=== PATIENT | female | born 1990 | race Hispanic/Latino ===

== ENCOUNTER → 2017-11-12 | Outpatient (CLI) | payer OTHER | LOC: M LRY 12:30 | DX: N88.8 Other specified noninflammatory disorders of cervix uteri (principal) | CPT/HCPCS: 87086 ==

== ENCOUNTER → 2017-11-12 | Outpatient (REF) | payer OTHER ==
[2017-11-12 18:06] LABS: CHLAMYDIA DNA AMPLIFICATION NEGATIVE (NEGATIVE); GC DNA AMPLIFICATION NEGATIVE (NEGATIVE)
== END ==
LOC: M SFHCLERA 12:07
DX: R30.0 Dysuria (principal); N93.9 Abnormal uterine and vaginal bleeding, unspecified; R10.2 Pelvic and perineal pain

== ENCOUNTER → 2018-11-13 | Outpatient (CLI) | payer OTHER ==
--- NOTE | 2018-11-13 17:25 | REP ---
Right foot: For views. History: Injury of the right foot. Findings: Four views of the right foot show overall normal mineralization. No fracture is seen. Bones, joints and soft tissues are unremarkable. Impression: No fracture noted. Electronically Signed by Delon Brooks MD 11/13/2018 05:16 P
== END ==
LOC: M LRY 16:41
PROVIDERS: ATTEND Nurse Practitioner Family
DX: S99.921A Unspecified injury of right foot, initial encounter (principal); X50.1XXA Overexertion from prolonged static or awkward postures, initial encounter; Y92.9 Unspecified place or not applicable
CPT/HCPCS: 73630; G0463

== ENCOUNTER → 2019-02-20 | Outpatient (REF) | payer OTHER | LOC: M SFHCLERA 13:15 | PROVIDERS: ATTEND Nurse Practitioner Family | DX: J02.9 Acute pharyngitis, unspecified (principal) ==

== ENCOUNTER → 2019-07-04 | Outpatient (CLI) | payer OTHER ==
--- NOTE | 2019-07-04 20:03 | REP ---
Clinical: Cough . Comparison: None . Technique: PA and lateral. Findings: The mediastinum and cardiac silhouette are normal. The lung mar are clear and without acute consolidation, effusion, or pneumothorax. The skeletal structures are intact and normal. Impression: 1. No acute cardiopulmonary process. Electronically Signed by Alin Haynes MD 07/04/2019 07:55 P
== END ==
LOC: M LRY 19:37
PROVIDERS: ATTEND Nurse Practitioner Family
DX: R05 Cough (principal)

== ENCOUNTER 2021-04-13 01:50 | Outpatient (CLI) | payer OTHER ==
[~2021-04-13] VITALS: Ht 149.9 cm; Wt 68.9 kg
[2021-04-13 02:10] VITALS: BP 140/94
[2021-04-13] MEDS ORDERED: PRENTAB9 PO (02:34)
[2021-04-13 02:48] VITALS: BP 134/82
--- NOTE | 2021-04-13 04:54 | IPNPDOC ---
Text Note Date of Service Item Value Date Time Urine Color YELLOW 04/13/21225 Urine Appearance HAZY 04/13/21225 Urine pH 5.0 UNITS 04/13/21225 Urine Protein 1+ mg/dL H 04/13/21225 Urine Glucose (UA) NEGATIVE mg/dL 04/13/21225 Urine Ketones NEGATIVE mg/dL 04/13/21225 Urine Blood NEGATIVE 04/13/21225 Urine Nitrite NEGATIVE 04/13/21225 Urine Urobilinogen 0.2 mg/dL 04/13/21225 Urine Leukocyte Esterase NEGATIVE 04/13/21225 Urine WBC (Auto) 0 /HPF 04/13/21225 Urine RBC (Auto) 1 /HPF 04/13/21225 Urine Hyaline Casts (Auto) 0 /LPF 04/13/21225 Urine Bacteria (Auto) NEGATIVE 04/13/21225 Urine Squamous Epithelial Cells 4 /HPF 04/13/21225 Urine Mucus (Auto) SMALL 04/13/21225 The patient was seen on 04/13/21. NOTE Vital Signs Label Value Date Time Pulse 85 04/13/218 Respiratory Rate 18 bpm 04/13/21247 Blood Pressure Assessment 134/82 (99) 04/13/21247 Source Automatic Cuff (NIBP) Blood Pressure Assessment 140/94 (109) 04/13/21209 Source Automatic Cuff (NIBP) Respiratory Rate 18 bpm 04/13/21209 Pulse 97 04/13/21209 Patient Temperature 98.5 degrees F 04/13/21209 Temperature Source Temporal 04/13/21209 Bedside Pulse Oximetry 99 % 04/13/21 0210 04/13/21 30 yo LMP 07/09/20 EDC BY EARLY US 04/15/21 HX CONTRACTIONS 7 MINUTES APART NO VAGINAL BLEEDING NO VAGINAL DISCHARGE RISK FACTORS PCOS ENDOMETRIOSIS ANXIETY EXAMINATION APPEARS DISTRESSED SF HEIGHT 40 CM PALPABLE CONTRACTIONS MILD PELVIC EXAMINATION FT POSTERIOR NOT IN PELVIS VERTEX CATEGORY 1 STRIP RECHECK 1 HOUR LATER NO CHANGE CATEGORY 1 STRIP' PRECAUTIONS GIVEN KEEP APPOINTMENT FT DRUM OB RTC IF CHANGE IN PATTERN OR SROM OR BLEEDING EXPRESSED UNDERSTANDING DISCHARGED UNDELIVERED VS,Fishbone, I+O VS, Fishbone, I+O Vital Signs Date Time Temp Pulse Resp B/P (MAP) Pulse Ox O2 Delivery O2 Flow Rate FiO2 04/13/21 02:48 85 18 134/82 (99) 04/13/21 02:10 98.5 99 Room Air Chidi Gordon MD Apr 13, 2021 04:53
== END 2021-04-13 04:23 | disposition home or self-care (01) ==
LOC: M LDO 01:50
PROVIDERS: ATTEND Obstetrics & Gynecology
DX: O60.03 Preterm labor without delivery, third trimester (principal); Z3A.00 Weeks of gestation of pregnancy not specified
CPT/HCPCS: 59025; 81001; G0378; G0463

== ENCOUNTER 2021-04-15 12:53 | Inpatient (IN) | payer OTHER ==
[~2021-04-15] VITALS: Ht 149.9 cm; Wt 68.7 kg
[2021-04-15] VITALS (28 sets, daily range): BP systolic 121–170; BP diastolic 63–92
[2021-04-15] MEDS: LR 1,000 ML IV SCH (02:00)
[~2021-04-15 12:53] MED LIST: PRENTAB9 PO
[2021-04-15] MEDS ORDERED: OXYTOCIN DRIP 30 UNITS in IV 1 EA IV PRN ×8 (13:45→20:15)
[2021-04-15] MEDS ORDERED: LACTATED RINGER'S 1000 ML IV ONE (13:45)
[2021-04-15] MEDS ORDERED: LR 1,000 ML IV SCH (13:45)
[2021-04-15] MEDS ORDERED: OXYTOCIN INJ 10 UNITS/ML VIAL (J2590) IV PRN ×2 (13:45→20:15)
[2021-04-15] MEDS ORDERED: METHYLERGONOVINE MALEATE 0.2 MG/ML VIAL (J2210) IM PRN ×2 (13:45→20:15)
[2021-04-15 14:55] LABS: HEMATOCRIT 35.1 % (36.0-47.0); HEMOGLOBIN 11.7 g/dl (12.0-15.5); MEAN CORPUSCULAR HEMOGLOBIN 30.7 pg (27.0-33.0); MEAN CORPUSCULAR HGB CONC 33.3 g/dl (32.0-36.5); MEAN CORPUSCULAR VOLUME 92.1 fl (80.0-96.0); PLATELET COUNT, AUTOMATED 207 10^3/uL (150-450); RED BLOOD COUNT 3.81 10^6/uL (4.00-5.40); WHITE BLOOD COUNT 14.2 10^3/uL (4.0-10.0)
[2021-04-15] MEDS ORDERED: FENTANYL 2MCG/ML ROPIVACAINE 0.2% IN 0.9% NACL 100ML IVBAG As Ordered ONE (15:10)
[2021-04-15] MEDS ORDERED: EPIDURAL COMMENT XX SCH (15:30)
[2021-04-15] MEDS ORDERED: REFRIGERATOR IV KEYS XX PRN (15:30)
[2021-04-15] MEDS ORDERED: ONDANSETRON 4MG/2ML VIAL IV PRN ×3 (15:30→22:00)
[2021-04-15] MEDS ORDERED: EPIDURAL/PCA KEYS XX PRN (15:30)
[2021-04-15] MEDS ORDERED: ePHEDrine SULFATE 25 MG/5 ML(5MG/ML) SYRINGE IV PRN (15:30)
[2021-04-15] MEDS ORDERED: NALOXONE INJ 0.4MG/1ML VIAL (J2310 PER 1MG) IV PRN ×3 (15:30→21:13)
[2021-04-15] MEDS ORDERED: FENTANYL/ROPIVACAINE/NACL BAG 100 ML EPIDURAL SCH (15:30)
[2021-04-15] MEDS ORDERED: LACTATED RINGER'S 1000 ML IV PRN (15:30)
[2021-04-15] MEDS ORDERED: diphenhydrAMINE 50MG/ML VIAL (J1200) IV PRN ×2 (15:30→21:13)
--- NOTE | 2021-04-15 16:39 | IPNPDOC ---
Text Note Date of Service Vital Signs Label Value Date Time Pulse 87 04/15/21 1318 Respiratory Rate 18 bpm 04/15/21 1318 Blood Pressure Assessment 141/92 (108) 04/15/21 1318 Source Automatic Cuff (NIBP) The patient was seen on 04/15/21. NOTE Item Value Date Time White Blood Count 14.2 10^3/uL H 04/15/21 1355 Red Blood Count 3.81 10^6/uL L 04/15/21 1355 Hemoglobin 11.7 g/dl L 04/15/21 1355 Hematocrit 35.1 % L 04/15/21 1355 Mean Corpuscular Volume 92.1 fl 04/15/21 1355 Mean Corpuscular Hemoglobin 30.7 pg 04/15/21 1355 Mean Corpuscular Hemoglobin Concent 33.3 g/dl 04/15/21 1355 Red Cell Distribution Width 13.1 % 04/15/21 1355 Platelet Count 207 10^3/uL 04/15/21 1355 assessment re post epidural examination anterior cervical change 3-4 arom clear fluid -3 station catagory 1 strip contractions adequate if needed pitocin will augment . safe to proceed VS,Fishbone, I+O VS, Fishbone, I+O Laboratory Tests 04/15/21 13:55 Vital Signs Date Time Temp Pulse Resp B/P (MAP) Pulse Ox O2 Delivery O2 Flow Rate FiO2 04/15/21 13:18 87 18 141/92 (108) Chidi Gordon MD Apr 15, 2021 16:37
[2021-04-15] MEDS ORDERED: OXYTOCIN DRIP 30 UNITS in IV 1 EA IV SCH (16:40)
--- NOTE | 2021-04-15 16:42 | HPEPDOC ---
Obstetrical History & Physical General Date of Admission Item Value Date Time White Blood Count 14.2 10^3/uL H 04/15/21 1355 Red Blood Count 3.81 10^6/uL L 04/15/21 1355 Hemoglobin 11.7 g/dl L 04/15/21 1355 Hematocrit 35.1 % L 04/15/21 1355 Mean Corpuscular Volume 92.1 fl 04/15/21 1355 Mean Corpuscular Hemoglobin 30.7 pg 04/15/21 1355 Mean Corpuscular Hemoglobin Concent 33.3 g/dl 04/15/21 1355 Red Cell Distribution Width 13.1 % 04/15/21 1355 Platelet Count 207 10^3/uL 04/15/21 1355 Vital Signs Label Value Date Time Pulse 87 04/15/21 1318 Respiratory Rate 18 bpm 04/15/21 1318 Blood Pressure Assessment 141/92 (108) 04/15/21 1318 Source Automatic Cuff (NIBP) Vital Signs Label Value Date Time Pulse 87 04/15/21 1318 Respiratory Rate 18 bpm 04/15/21 1318 Blood Pressure Assessment 141/92 (108) 04/15/21 1318 Source Automatic Cuff (NIBP) Apr 15, 2021 at 13:34 Primary Care Physician: Chidi Gordon MD History of Present Illness EDC 04/15/2021 AT TERM CONTRACTIONS 2 DAYS UNABLE TO SLEEP NOT EATING OR DRINKING PRESENTLY MINIMAL VARIABILITY MODERATE PROLONGED CONTRACTIONS Chief Complaint: Contractions, term Information Provided By: Patient Age: 30 : 1 Term: 0 Pre-term: 0 Abortions: 0 Livin Care Care: Good Care Number of Visits: 9 Dating Final EDC: Apr 15, 2021 Final EDC for Daily Update: Apr 15, 2021 Final EDC by: LMP LMP: Jul 09, 2020 1st Trimester Date: September 07, 2020 Weeks + Days: 8.3 Estimated Date of Confinement: Apr 15, 2021 EGA at Admission: 40 Antepartum Course Diagnos(e)s ACTIVE LABOR AT TERM Height (inches): 59 Pre- weight (lbs.): 127 Admission Weight (lbs.): 152 Change in Weight (lbs.): 25 Past Medical History Past Obstetrical History : Past Obstetrical History: Primgravida DISH PERSON History: Endometriosis (PCOS), Other (PCOS ) Past Medical History Medical History ANXIETY Surgical History: Other (LAPAROSCOPY ENDOMETRIOSIS WISDOM TEETH) Family History Significant Family History: Cancer (CIRRHOSIS HYPERTENSION THYROID, ) Family History MOTHER THYROID, LIVER MGP THYROID,HYPERTENSION Social History Social history AD NO VIOLENCE NO RISKY BEHAVIOR Marital Status: Family situation: Spouse/partner home Psychosocial History: Anxiety * Smoker: non-smoker Alcohol: Denies Drugs: denies Abuse Violence Screening Have you been hit/kicked/slapp: No Have you been sexually assault: No Imunizations Tdap status: current Influenza Status: current Allergies Coded Allergies: shellfish derived (Verified Allergy, Severe, 04/13/21) cefaclor (Verified Allergy, Unknown, 04/13/21) Medications Scheduled No.137/Iron/Folic Acd ( Vitamin Tablet) 1 Each Tablet, 1 TAB PO DAILY Physical Examination Physical Examination GENERAL: Alert and oriented times three. BREAST: . ABDOMEN: Gravid and non-tender to touch. FETUS: Is vertex (VTX) by sterile vaginal examination (SVE), fetus is vertex (VTX) by Dwain.3-4 STRETCHY SOFT MID POSITION BULGING MEMBRANES -3 STATION -3 HEART RATE: Regular rate and rhythm. MINIMAL VARIBILITY LUNGS: Clear to auscultation (CTA). EXTREMITIES: No edema. No clonus. Deep tendon reflexes (DTRs) + . Other physical findings NORMOCEPHALIC ATRAUMATIC NECK FULL RANGE MOTION, CHEST CLEAR TO BASES NO WHEEZE NO RHONCHI, NO SOB HEART REGULAR RHYTHM NO MURMUR NO CLICKS RUBS NO CHEST PAIN NO RASHES LESIONS PLEURITIS NO ARTHRALGIA MYALGIA NO ARTHRITIS ABDOMEN SOFT MODERATE PAIN WITH CONTRACTIONS SF HEIGHT 40 CM 4 QUADRANT BOWEL SOUNDS NO N/V/ D/C/F. NO URGENCY NO FREQUENCY NO ENDOCRINE ISSUES Laboratory Data 24H LABS Laboratory Tests 2 04/15/21 13:38: Serology Scanned Report Hepatitis B Testing Pertinent Laboratoy Data Blood Type: A+ RBC Antibody Screen: Negative HIV: Negative Hepatitis B: Negative Rapid Plasma Reagin: Nonreactive Rubella: Immune Varicella: Immune Chlamydia/Gonorrhea: Negative Group B Streptococcus: Negative Quad Screen Test: Unknown Cystic Fibrosis: Negative Glucose Tolerance Test: 158 (3 HR GTT 78/142/145/116) Anatomy Ultrasound Placenta Location: Anterior Normal Anatomy: Yes Placenta Previa: No Estimated Weight (grams): 380 Steroid Therapy Steroid Therapy: No Vaginal Examination Dilation: 4 cm Effacement: 60% Station: -3 Cervical Consistency: Soft Cervical Position: Posterior Presentation: Cephalic presentation Assessment Heart Rate (FHR): 150 Variability: Minimal (NOT EAT OR DRINK X 24 HOURS) Accelerations: Present Decelerations: None Tocometer Contractions: Yes Frequency: every 1-3 min. Duration: greater than 60 seconds Strength: palpated as moderate Assessment/Plan Assessment 30-year-old (G) 1para (P)0 at 40.0 weeks by 7.2 -week ultrasound. Pre sents to Labor and Delivery (L&D) .ACTIVE LABOR Plan Admit and orient. Belt Brander and consent. Diet: .NPO Group B Streptococcus (GBS) [negative]. Labs and intravenous (IV) per unit protocol. Counseled on Pitocin and induction of labor (IOL). Lactated Ringers (LR): Bolus 1000 mL, then at 125 mL/hr. Anticipate [normal spontaneous delivery ()]. C-S as appropriate. Labor and Delivery Counseling REVIEWED VAGINAL DELIVERY WITH POSSIBLE USE OF FORCEPS OR VACUUM FOR OPERATIVE VAGINAL DELIVERY IF DELIVERY IS NEEDED IMMINENT,RISK OF CEPHALOHEMATOMA. HEMATOMA, TEARS LACERATIONS ADMISSION OF TO NICU FOR OBSERVATION. RISK AUGMENTATION, TACHYSYSTOLE NRFHT, LEAD TO CS. RISK CS HEMORRHAGE INFECTION PERFORATION REOPERATION REMOTE BLOOD TRANSFUSION, REMOTE HYSTERECTOMY FOR LIFE THREATENING BLEEDING EXPRESSED UNDERSTANDING SAFE TO PROCEED ' PLAN PATIENT EXHAUSTED DEHYDRATED IV REHYDRATION EPIDURAL FOR PAIN MANAGEMENT AND ALLOW TO SLEEP Chidi Gordon MD Apr 15, 2021 14:05
[2021-04-15] MEDS ORDERED: OXYTOCIN INJ 10 UNITS/ML VIAL (J2590) As Ordered ONE (20:13)
[2021-04-15] MEDS ORDERED: ACETAMINOPHEN 650 MG SUPP PR SCH (20:15)
[2021-04-15] MEDS ORDERED: ceFAZolin SOD 2 GM in IV 1 EA IV ONE (20:15)
[2021-04-15] MEDS ORDERED: AZITHROMYCIN INJ 500 MG, VIAL MATE ADAPTER 1 EACH in NS 250 ML IV ONE (20:15)
[2021-04-15] MEDS ORDERED: BICITRA 30ML SOLN UDC PO ONE (20:15)
[2021-04-15] MEDS ORDERED: BUPIVACAINE HCL 0.25% 10ML VIAL SC SCH (20:15)
[2021-04-15] MEDS ORDERED: LIDOCAINE PRES-FREE 2% 10ML AMP As Ordered ONE (20:16)
[2021-04-15] MEDS ORDERED: ceFAZolin 2 GM/D5W 50 ML IV BAG (J0690 PER 500MG) As Ordered ONE (20:19)
[2021-04-15] MEDS ORDERED: AZITHROMYCIN INJ 500MG VIAL (J0456 PER 500MG) As Ordered ONE (20:20)
[2021-04-15] MEDS ORDERED: ESMOLOL INJ 100MG/10ML VIAL As Ordered ONE (20:49)
[2021-04-15] MEDS ORDERED: MIDAZOLAM INJ 2MG/2ML VIAL (J2250 PER 1MG) As Ordered ONE (21:01)
[2021-04-15] MEDS ORDERED: MORPHINE PRES-FREE INJ 10 MG/10 ML VIAL (J2274) As Ordered ONE (21:10)
[2021-04-15 21:12] LABS: CORD GAS ABE V -11.3; CORD GAS HCO3 V 18.8 MEQ/L; CORD GAS O2 SAT V 55.2 %; CORD GAS PCO2 V 59.3 mmHg; CORD GAS PH V 7.118 UNITS; CORD GAS PO2 V 30.7 mmHg; CORD GAS SBC V 14.9 MEQ/L; CORD GAS TCO2 V 20.6 MEQ/L
[2021-04-15 21:13] LABS: CORD GAS PO2 A 12.7 mmHg
[2021-04-15] MEDS ORDERED: NALBUPHINE HCL 10 MG/ML AMP (J2300) IV PRN ×2 (21:13→22:00)
[2021-04-15] MEDS ORDERED: METOCLOPRAMIDE INJ 10MG/2ML VIAL (J2765 PER 1) IV PRN (21:13)
[2021-04-15 21:15] LABS: CORD GAS ABE A -10.2; CORD GAS HCO3 A 19.7 MEQ/L; CORD GAS O2 SAT A 15.2 %; CORD GAS PCO2 A 61.4 mmHg; CORD GAS PH A 7.124 UNITS; CORD GAS SBC A 14.9 MEQ/L; CORD GAS TCO2 A 21.6 MEQ/L
[2021-04-15] MEDS ORDERED: oxyCODONE 5MG TAB PO PRN (22:00)
[2021-04-15] MEDS ORDERED: MEPERIDINE INJ 25 MG/ML VIAL (J2175) IV PRN (22:00)
[2021-04-15] MEDS ORDERED: HYDROMORPHONE HCL 0.5 MG/ 0.5 ML SYRINGE (J1170 PER 1) IV PRN (22:00)
[2021-04-15] MEDS ORDERED: fentaNYL 100 MCG/2 ML INJECTION (J3010) As Ordered ONE (22:00)
[2021-04-15] MEDS ORDERED: OXYTOCIN 30 UNITS IN 0.9% NaCl 500ML IV BAG (J2590) As Ordered ONE (22:02)
[2021-04-15] MEDS: fentaNYL 100 MCG/2 ML INJECTION (J3010) IV PRN ×3 (22:02→22:31)
--- NOTE | 2021-04-15 22:08 | IPN ---
PROGRESS NOTE DATE: 04/15/2021 TIME: 2030 hours SUBJECTIVE: This lady was admitted with moderate contractions after two days when she initially came in. She had prolonged contractions. She had a monitor strip which showed minimal variability and almost a category 2 strip. However, she had not eaten, slept or drank anything for the complete 24 hours. She was at 40 weeks of gestation. She did have an epidural in place and she progressed well, required a bit of Pitocin in order to augment her contractions after rehydration. With meconium stained liquor, we noted that she had some late decelerations with recovery. However, reevaluation, examination after having an FSE in as well as external monitoring indicates she was still 4 cm, not well applied, minus 3 station and baby was not tolerating labor well. There was recovery with resuscitation, placing patient in the knee-chest position, IV fluids, oxygen but the baby just recovered after discontinuing Pitocin and reducing the uterine contractions. We discussed the risks and benefits of long-term labor, the fact that she was remote from delivery and the baby at the present time is in good health. However, the time limits as to how much this baby will tolerate is indeterminate and the fact that the baby is in good health at the present time, planned an urgent section at the present time would be appropriate. We discussed the risks and benefits of section including hemorrhage, infection, perforation, , reoperation, remote possibility of blood transfusion, remote possibility of hysterectomy for life threatening bleeding issues. Also, intensive care unit admission for observation and because of the meconium and the possibility of intervention with forcep or operative delivery at the section site. The patient expressed understanding of same, signed the consent form. We await anesthesiology. We have notified neonatology. The patient was given appropriate antibiotic therapy preoperatively. Morgan catheter is in place, acetaminophen suppository 1300 mg per rectum. [facility]
[2021-04-15] MEDS ORDERED: HYDROMORPHONE HCL 0.5 MG/ 0.5 ML SYRINGE (J1170 PER 1) As Ordered ONE (22:49)
[2021-04-15] MEDS ORDERED: OXYTOCIN DRIP 30 UNITS in IV 1 EA IV ONE ×4 (23:00)
[2021-04-15] MEDS ORDERED: ACETAMINOPHEN 500 MG TAB PO PRN (23:00)
[2021-04-15] MEDS ORDERED: PERCOCET 5MG/325MG TAB PO PRN (23:00)
[2021-04-15] MEDS ORDERED: ACETAMINOPHEN TAB 650MG DOSE (2X325MG) PO PRN (23:00)
[2021-04-15] MEDS ORDERED: METHYLERGONOVINE MALEATE 0.2 MG TAB PO PRN (23:00)
[2021-04-15] MEDS ORDERED: MOM 30ML SUSPENSION UDC PO PRN (23:00)
[2021-04-15] MEDS ORDERED: OXYTOCIN INJ 10 UNITS/ML VIAL (J2590) IV ONE (23:00)
[2021-04-15] MEDS ORDERED: RHOGAM 300 MCG (1500 IU) INJ (J2790) IM SCH (23:00)
[2021-04-15] MEDS ORDERED: MEASLES,MUMPS,RUBELLA VACCINE INJ (MMR-II) (90707) SC SCH (23:00)
[2021-04-15] MEDS ORDERED: ANUSOL HC CREAM 30GM TOP PRN (23:00)
[2021-04-15] MEDS ORDERED: KETOROLAC 30 MG/ML 1ML VIAL As Ordered ONE (23:14)
[2021-04-15] MEDS: KETOROLAC 30 MG/ML 1ML VIAL IV SCH (23:22)
[2021-04-16] VITALS (8 sets, daily range): BP systolic 112–133; BP diastolic 55–80
[2021-04-16] MEDS ORDERED: KETOROLAC 30 MG/ML 1ML VIAL IV SCH (05:30)
[2021-04-16] MEDS: KETOROLAC 30 MG/ML 1ML VIAL IV SCH ×2 (05:53→11:32)
[2021-04-16] MEDS: LR 1,000 ML IV SCH ×3 (07:00→23:00)
[2021-04-16] MEDS: PRENATAL VITAMINS CHEWABLE TABLET PO SCH (09:07)
--- NOTE | 2021-04-16 09:20 | RO ---
OPERATIVE NOTE DATE OF OPERATION: 04/15/2021 PREOPERATIVE DIAGNOSIS: Nonreassuring heart tones, remote from delivery, meconium stained liquor. POSTOPERATIVE DIAGNOSIS: Nonreassuring heart tones, remote from delivery, meconium liquor. OPERATION PERFORMED: PRIMARY SURGEON: Chidi Gordon M.D. GROUP DIRECTOR: Elizabeth Senior CNM for extraction, retraction, visualization without which the procedure could not be completed. ANESTHESIA: Epidural. ESTIMATED BLOOD LOSS: 150 mL DESCRIPTION OF PROCEDURE: After adequate timeout, prepped and draped in the supine position, Morgan catheter in the bladder draining clear urine, acetaminophen suppository 1300 mg per rectum, appropriate antibiotics preoperatively. A Pfannenstiel incision was made two fingerbreadths above the symphysis pubis, passing through abdominal layers, securing hemostasis, opening the peritoneal cavity. We noticed a bulging, thin lower uterine segment indicating adequate contractions. Her bladder reflected well down anteriorly. A low transverse incision was made into the uterus. Meconium stained liquor was noted. We delivered the baby in the OP position, female infant weighing 7 lb, 10 oz, 3450 gm, of 4, 9 and 9 in 1, 5 and 10 minutes respectively, arterial pH 7.12, base excess minus 10.2, venous pH 7.11, base excess minus 11.3. The placenta was manually removed, three vessels in the cord, membranes and tissues intact, completely stained with amniotic fluid including staining of the intrauterine cavity. The uterus contracted well down on Pitocin, sweeping out the membranes. We noted that there was no evidence of any remnants in the uterus. The lower segment was identified. The lower segment was oversewn in the usual fashion in two layers, imbricating the second layer and reperitonealization the peritoneum. With instrument and pad count correct, both ovaries and tubes appeared to be normal. The Mobius which was applied prior to dissection was removed. With instrument and pad count correct, a running stitch for the peritoneum, the same for the fascia. Irrigation was done, subcuticular stitches interrupted and subcutaneous with Marcaine 0.25% 10 mL to the incisional site. A Medipore dressing was placed. The uterus remained contracted under Pitocin, the patient and baby tolerating procedure well. [facility] MTDD
[2021-04-16 09:53] LABS: HEMATOCRIT 29.5 % (36.0-47.0); MEAN CORPUSCULAR HEMOGLOBIN 30.5 pg (27.0-33.0); MEAN CORPUSCULAR HGB CONC 32.2 g/dl (32.0-36.5); MEAN CORPUSCULAR VOLUME 94.9 fl (80.0-96.0); PLATELET COUNT, AUTOMATED 191 10^3/uL (150-450); RED BLOOD COUNT 3.11 10^6/uL (4.00-5.40); WHITE BLOOD COUNT 16.8 10^3/uL (4.0-10.0)
[2021-04-16 09:58] LABS: HEMOGLOBIN 9.5 g/dl (12.0-15.5)
--- NOTE | 2021-04-16 10:05 | IPN ---
PROGRESS NOTE DATE: 04/16/2021 SUBJECTIVE: This lady is a 30-year-old 1, now para 1, admitted with contractions of two days' duration, not sleeping, not eating well, considerably dehydrated at 40 weeks gestation. She had a primary section for non-reassuring heart tones remote from delivery, meconium stained lochia. She delivered a female 7 pounds 10 ounces, 3450 gm, Apgars 4, 9 and 9. Arterial pH 7.21, base excess -10.2, venous pH 7.11, base excess -11.3. On her first day we discussed phlebitis, cystitis, mastitis, endometritis, cellulitis, diet, exercise, pain management, perineal, breast and wound care. OBJECTIVE: On examination her blood pressure is 112/55, respirations 16, pulse 86, temperature 98.8. Her admitting hemoglobin 11.7, hematocrit 35.1, platelets 207. day 1 hemoglobin is pending. The rest of the exam is unremarkable. Normocephalic, atraumatic. Neck full range of motion. Pupils equal and reactive to light. Distal pulses symmetric. No evidence of DVT, PE or superficial phlebitis. Chest is clear bilaterally to bases, no wheezes or rhonchi, no CVA tenderness. Abdomen soft, four quadrant bowel sounds noted. Uterus 2 below. Incision clean and dry. No rashes, lesion or pruritus. No arthralgias or myalgias. No complaints of joint pain. No complaint of cough, wheeze, shortness of breath or dyspnea on exertion. No nausea, vomiting, diarrhea or constipation. No urgency or frequency presently. Breast feeding doing well. Mobilizing, passing gas and appropriate pain management. PLAN: Pickup medications at [place] and discharge will be in 48 hours' time. All questions were answered. cc: [facility]
[2021-04-16] MEDS: IBUPROFEN 600MG TAB PO PRN (18:35)
[2021-04-16] MEDS: DOCUSATE SODIUM 100MG CAPSULE PO PRN (21:38)
[2021-04-17] MEDS: IBUPROFEN 600MG TAB PO PRN (00:53)
[2021-04-17 02:00] VITALS: BP 113/69
[2021-04-17 06:00] VITALS: BP 137/85
[2021-04-17] MEDS: PERCOCET 5MG/325MG TAB PO PRN ×2 (06:33→21:27)
--- NOTE | 2021-04-17 06:34 | IPNPDOC ---
Progress Note Date of Service: Apr 17, 2021 Progress Note 30 yo G1 now P1 POD#2 s/p uncomplicated PLTCS late at night on 15Apr2021 for NRFHT after being admitted for active labor. Baby was transferred to the NICU yesterday due to some respiratory distress. Angela is overall doing well. She reports increased abdominal pain today. She is ambulating, voiding on her own, and tolerating a regular diet. Lochia has been minimal. Vitals - VSS, afebrile, normotensive, non tachycardic General - AAOX3, laying in bed, NAD Abdomen - Fundus firm at U-2. No fundal tenderness. Optifoam dressing in place over incision. Minimal strikethrough. Appropriate tenderness to palpation. Extremities - Trace edema UO - appropriate Labs: Pre op H/H 11.7/35.1 --> 9.5/29.5 post op day #1 Angela is making an appropriate / postoperative recovery. Will increase motrin to 800mg scheduled. Paper script given for oxycodone to bulk picker at the pharmacy when discharged. still in NICU. Will await for discharge home until tomorrow unless baby cleared for discharge home today. All patient questions answered. [place] VS, I&O, 24H, [facility] Vital Signs/I&O Vital Signs Date Time Temp Pulse Resp B/P (MAP) Pulse Ox O2 Delivery O2 Flow Rate FiO2 04/17/21 02:00 97.3 88 18 113/69 (84) 99 Room Air I&O- Last 24 Hours up to 6 AM 04/17/21 06:00 Output Total 660 ml Balance -660 ml Laboratory Data 24H LABS Laboratory Tests 2 04/16/21 09:20: Nucleated Red Blood Cells % (auto) 0.0 CBC/BMP Laboratory Tests 04/16/21 09:20 CUONG MCINTOSH DO Apr 17, 2021 06:34
[2021-04-17] MEDS: IBUPROFEN 800 MG TAB PO SCH ×3 (06:35→21:31)
[2021-04-17] MEDS: PRENATAL VITAMINS CHEWABLE TABLET PO SCH (08:40)
[2021-04-17 10:00] VITALS: BP 144/82
[2021-04-17] MEDS: SIMETHICONE 80MG CHEW TAB PO PRN ×2 (10:55→21:28)
[2021-04-17 15:00] VITALS: BP 132/78
[2021-04-17 18:00] VITALS: BP 139/83
[2021-04-17] MEDS: DOCUSATE SODIUM 100MG CAPSULE PO PRN (21:21)
[2021-04-18] MEDS: IBUPROFEN 800 MG TAB PO SCH (05:36)
[2021-04-18 06:00] VITALS: BP 129/80
[2021-04-18] MEDS ORDERED: ACET1TAB55 PO (06:41)
[2021-04-18] MEDS ORDERED: COLA100C5 PO (06:41)
[2021-04-18] MEDS ORDERED: PERCOCET PO (06:41)
[2021-04-18] MEDS ORDERED: IBUP80TA PO (06:41)
[2021-04-18] MEDS: PRENATAL VITAMINS CHEWABLE TABLET PO SCH (08:07)
[2021-04-18] MEDS: PERCOCET 5MG/325MG TAB PO PRN (08:08)
== END 2021-04-18 11:12 | disposition home or self-care (01) | DRG 773 ==
LOC: M LDO 12:53 → M LDI 13:34 → M OBS 23:30
PROVIDERS: ADMIT Obstetrics & Gynecology; ATTEND Obstetrics & Gynecology
PROC: 10D00Z1 Extraction of Products of Conception, Low, Open Approach (ICD-10-PCS; principal; 2021-04-15 20:36)
DX: O76 Abnormality in fetal heart rate and rhythm complicating labor and delivery (principal); O77.0 Labor and delivery complicated by meconium in amniotic fluid; Z37.0 Single live birth; Z3A.40 40 weeks gestation of pregnancy

== ENCOUNTER 2022-08-17 12:06 | Emergency (ER) | payer OTHER ==
[~2022-08-17] VITALS: Ht 121.9 cm; Wt 55.6 kg
[~2022-08-17 12:06] MED LIST changes: +ACET1TAB55 PO; +COLA100C5 PO; +IBUP80TA PO; +PERCOCET PO
[2022-08-17] MEDS ORDERED: FLUO10CA18 (12:13)
[2022-08-17] MEDS ORDERED: GI COCKTAIL 50ML BTL(HYOSCYAMINE/MAALOX/LIDOCAINE VISCOUS)(1:3:1) PO ONE (12:30)
[2022-08-17] MEDS ORDERED: PANTOPRAZOLE 40MG VIAL IV ONE (12:30)
[2022-08-17 12:52] LABS: BASO % 0.1 % (0.0-1.0); EOS % 0.3 % (0.0-3.0); HEMATOCRIT 38.8 % (36.0-47.0); LYMPH % 14.4 % (24.0-44.0); MEAN CORPUSCULAR HEMOGLOBIN 31.3 pg (27.0-33.0); MEAN CORPUSCULAR HGB CONC 33.5 g/dl (32.0-36.5); MEAN CORPUSCULAR VOLUME 93.5 fl (80.0-96.0); MONO # 0.8 10^3/uL (0.0-0.8); MONO % 11.2 % (2.0-8.0); NEUTROPHILS # 5.1 10^3/uL (1.5-8.5); NEUTROPHILS % 73.6 % (36.0-66.0); PLATELET COUNT, AUTOMATED 242 10^3/uL (150-450); RED BLOOD COUNT 4.15 10^6/uL (4.00-5.40)
[2022-08-17 13:19] LABS: LIPASE 29 U/L (12-53)
[2022-08-17 13:21] LABS: ALBUMIN 4.3 G/DL (3.2-5.2); ALKALINE PHOSPHATASE 71 U/L (46-116); ALT/SGPT 12 U/L (7.0-40); AST/SGOT 13 U/L (<34); BILIRUBIN,DIRECT 0.1 MG/DL (<0.4); BILIRUBIN,TOTAL 0.5 MG/DL (0.3-1.2); BLOOD UREA NITROGEN 11 MG/DL (9-23); CALCIUM LEVEL 8.8 MG/DL (8.5-10.1); CARBON DIOXIDE LEVEL 26 MMOL/L (20-31); CHLORIDE LEVEL 104 MMOL/L (98-107); CREATININE FOR GFR 0.65 MG/DL (0.55-1.30); GLOMERULAR FILTRATION RATE > 60.0 (>60); GLUCOSE, FASTING 91 MG/DL (60-100); POTASSIUM SERUM 3.8 MMOL/L (3.5-5.1); SODIUM LEVEL 137 MMOL/L (136-145); TOTAL PROTEIN 7.2 G/DL (5.7-8.2)
[2022-08-17 13:24] LABS: HCG, SERUM QUALITATIVE NEGATIVE (NEGATIVE)
[2022-08-17] MEDS: GASTROGRAFIN SOLUTION 30ML PO SCH ×2 (14:13→14:15)
[2022-08-17] MEDS ORDERED: PROT1TAB2 PO (16:23)
[2022-08-17] MEDS ORDERED: AZIT-12 PO (16:24)
[2022-08-17 16:34] VITALS: BP 130/80
== END 2022-08-17 16:39 | disposition home or self-care (01) ==
LOC: M ED 12:06
DX: R10.13 Epigastric pain (principal); J20.9 Acute bronchitis, unspecified; F17.200 Nicotine dependence, unspecified, uncomplicated; Z88.1 Allergy status to other antibiotic agents; Z91.013 Allergy to seafood; Z79.1 Long term (current) use of non-steroidal anti-inflammatories (NSAID); Z79.899 Other long term (current) drug therapy
CPT/HCPCS: 71046; 74176; 80048; 80076; 83690; 84484; 84703; 85025; 93005; 93041; 96374; 99285; C9113; Q9963

== ENCOUNTER → 2022-12-22 | Outpatient (CLI) | payer OTHER ==
[~2022-12-22] MED LIST changes: +AZIT-12 PO; +FLUO10CA18; +PROT1TAB2 PO
== END ==
LOC: M EKG 11:09
DX: R00.2 Palpitations (principal); R00.0 Tachycardia, unspecified